=== PATIENT | female | born 2000 | race Two or more races ===

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

== ENCOUNTER → 2020-11-22 | Outpatient (CLI) | payer OTHER ==
[~2020-11-22] MED LIST: FOLIC ACID1 MG PO; PRENATAL FORMU1 EAC2 PO
== END | disposition home or self-care (01) ==
LOC: PRENATAL 10-19 16:00
PROVIDERS: ATTEND Obstetrics & Gynecology Maternal & Fetal Medicine
DX: O35.0XX1 Maternal care for (suspected) central nervous system malformation in fetus, fetus 1 (principal); O35.3XX1 Maternal care for (suspected) damage to fetus from viral disease in mother, fetus 1; O98.512 Other viral diseases complicating pregnancy, second trimester; O99.891 Other specified diseases and conditions complicating pregnancy; Z36.89 Encounter for other specified antenatal screening; Z3A.23 23 weeks gestation of pregnancy

== ENCOUNTER → 2021-01-29 | Outpatient (CLI) | payer OTHER | END | disposition home or self-care (01) | LOC: PRENATAL 16:30 | PROVIDERS: ATTEND Obstetrics & Gynecology Maternal & Fetal Medicine | DX: O26.843 Uterine size-date discrepancy, third trimester (principal); O36.8131 Decreased fetal movements, third trimester, fetus 1; O99.891 Other specified diseases and conditions complicating pregnancy; Z36.89 Encounter for other specified antenatal screening; Z3A.32 32 weeks gestation of pregnancy ==

== ENCOUNTER 2021-02-20 19:33 | Inpatient (IN) | payer OTHER ==
[~2021-02-20] VITALS: Ht 157.5 cm; Wt 63.5 kg
== END 2021-02-22 16:04 | disposition home or self-care (01) | DRG 805 ==
LOC: LDR 19:33 → OB/GYN 19:33
PROVIDERS: ADMIT Obstetrics & Gynecology; ATTEND Obstetrics & Gynecology
PROC: 10E0XZZ Delivery of Products of Conception, External Approach (ICD-10-PCS; principal; 2021-02-20)
PROC: 4A1HXFZ Monitoring of Products of Conception, Cardiac Rhythm, External Approach (ICD-10-PCS; 2021-02-20)
DX: O42.013 Preterm premature rupture of membranes, onset of labor within 24 hours of rupture, third trimester (principal); O98.52 Other viral diseases complicating childbirth; U07.1 COVID-19; Z37.0 Single live birth; Z3A.36 36 weeks gestation of pregnancy

== ENCOUNTER 2023-01-15 07:08 | Day surgery (SDC) | payer OTHER | END 2023-01-15 17:30 | disposition home or self-care (01) | LOC: CIR.AMB 07:08 | PROVIDERS: ATTEND Obstetrics & Gynecology | DX: Z30.2 Encounter for sterilization (principal); N91.1 Secondary amenorrhea; Z20.822 Contact with and (suspected) exposure to COVID-19 ==

== ENCOUNTER 2024-07-13 06:38 | Day surgery (SDC) | payer OTHER ==
[2024-07-12 09:23] LABS: PH,URINE 5.5 (5.0-8.0); URINE APPEARANCE Clear; URINE BILIRRUBIN Negative (NEGATIVE); URINE BLOOD Negative; URINE COLOR Yellow; URINE GLUCOSE Negative (NEGATIVE); URINE KETONE Negative (NEGATIVE); URINE LEUKOCYTE Moderate; URINE NITRATE Negative; URINE PROTEIN Negative (NEGATIVE); URINE UROBILINOGEN 0.2 E.U./dl
[2024-07-12 09:27] LABS: URINE BACTERIA 2808.9 uL (0.0-1933); URINE EPITHELIAL CELLS 39.2 uL (0.0-38.8); URINE RBC 2.2 uL (0.0-20.8); URINE WBC 61.1 uL (0.0-23.2)
[2024-07-12 09:42] LABS: HEMATOCRIT 36.5 % (36.0-45.00); HEMOGLOBIN 12.3 g/dL (12.0-15.00); MEAN CELL VOLUME 84.2 fL (80.00-100.00); MEAN CORPUSCULAR HEMOGLOBIN 28.4 pg (27.00-32.0); MEAN CORPUSCULAR HGB CONC 33.7 g/dl (32.0-36.0); PLATELET COUNT 273 K/uL (150-450); RED BLOOD COUNT 4.34 M/uL (4.00-6.00); RED CELL DISTRIBUTION WIDTH 13.5 % (11.5-14.5)
[2024-07-12 09:57] LABS: INR 0.97; PARTIAL THROMBOPLASTIN TIME 27.6 SECONDS (22.0-34.0); PROTHROMBIN TIME 10.6 SECONDS (9.0-11.5)
[2024-07-12 10:27] LABS: ALBUMIN 3.7 gm/dL (3.4-5.0); BILIRUBIN TOTAL 0.19 mg/dL (0.3-1.2); CALCIUM 9.2 mg/dL (8.5-10.1); CREATININE SERUM 0.62 mg/dL (0.55-1.02); GFR 119.28; GLOBULINA 3.5 G/DL (2.4-3.5); POTASSIUM 4.24 mEq/L (3.5-5.1); TOTAL PROTEIN 7.2 gm/dL (6.4-8.2)
[2024-07-13] MEDS ORDERED: CEFAZOLIN SODIUM 1,000 MG VIAL ONE (10:42)
[2024-07-13] MEDS ORDERED: MORPHINE SULFATE 4 MG/ML VIAL IV ONE (13:25)
== END 2024-07-13 14:55 | disposition home or self-care (01) ==
LOC: CIR.AMB 06:38
PROVIDERS: ATTEND Orthopaedic Surgery Hand Surgery
DX: S52.531A Colles' fracture of right radius, initial encounter for closed fracture (principal); Z88.6 Allergy status to analgesic agent; J45.909 Unspecified asthma, uncomplicated
CPT/HCPCS: 25609; 25118; 25280; L8699